=== PATIENT | male | born 1985 | race Caucasian/White ===

== ENCOUNTER 2019-05-31 13:40 | Emergency (ER) | payer BC ==
[2019-05-31] MEDS ORDERED: LEVALBUTEROL 1.25 MG/3 ML NEB ONE (14:25)
[2019-05-31] MEDS ORDERED: IPRATROPIUM BROM 0.5MG/2.5ML ONE (14:25)
[2019-05-31] MEDS ORDERED: NA CHLORIDE 0.9% 1,000 ML ONE ×2 (14:25→16:28)
[2019-05-31 14:40] LABS: Protime INR 1.38
[2019-05-31 14:41] LABS: Absolute Lymphocytes (CBC) 0.6 K/uL (0.7-4.9); Basophils % 0.2 % (0-1.3); Hematocrit 45.6 % (39.6-49.0); Lymphocytes % 3.1 % (15.3-44.8); MPV 9.8 fL (7.6-11.3); RBC Red Blood Cell Count 5.18 M/uL (4.33-5.43)
[2019-05-31 14:55] LABS: BUN Blood Urea Nitrogen 23 mg/dL (7-18); Bicarbonate 23 mmol/L (21-32); Glucose Level 115 mg/dL (74-106); Magnesium 2.7 mg/dL (1.8-2.4); NT PRO-BNP 80 pg/mL (<125); Potassium 3.5 mmol/L (3.5-5.1); Sodium Level 132 mmol/L (136-145); Troponin (Emerg Dept Use Only) < 0.02 ng/mL (0.0-0.045)
[2019-05-31 15:53] LABS: Blood Morphology Comment NOT SEEN (NOT SEEN); Platelet Estimate ADEQ; Urine White Blood Cell Casts OK
[2019-05-31] MEDS ORDERED: CEFTRIAXONE/SWI 1gm 1 GM/10 ML SYR ONE (16:00)
--- NOTE | 2019-05-31 16:03 | RAD REPORT ---
EXAM DESCRIPTION: CT - Chest For Pe Angio - 05/31/2019 3:32 pm CLINICAL HISTORY: Dyspnea;Cough COMPARISON: No comparisons TECHNIQUE: Dynamically enhanced 3 mm thick images of the chest were obtained during administration o f approximately 150mL Isovue 370 IV contrast. Coronal and oblique MIP reconstruction images were gene rated and reviewed. Exam utilizes a protocol to evaluate the pulmonary arterial tree. All CT scans are performed using dose optimization technique as appropriate and may include automated exposure control or mA/KV adjustment according to patient size. FINDINGS: No pulmonary emboli are identified. The aorta as imaged shows no acute or suspicious finding. No pericardial thickening or effusion. Extensive ground-glass airspace opacification is present throughout the left upper lobe and left lowe r lobe. There is extensive similar pattern in the right lower lobe and much of the right upper lobe. No pleural effusion or pleural thickening. No mediastinal or hilar suspicious masses. No chest wall masses or abnormal axillary lymphadenopathy. IMPRESSION: No pulmonary emboli identified. Very extensive ground-glass alveolar opacities throughout most of the bilateral lung mckoy sparing p ortions of each apex and portions of the right lower lobe and right middle lobe. Pattern is nonspecif ic and there is a very long differential diagnosis. This alveolar edema can be from failure or volume overload. Pneumonia, inhalation injury and hypersen sitivity pneumonitis are possible.
--- NOTE | 2019-05-31 16:05 | RAD REPORT ---
EXAM DESCRIPTION: CT - Abdomen Pelvis W Contrast - 05/31/2019 3:33 pm CLINICAL HISTORY: ABD PAIN COMPARISON: None. TECHNIQUE: Biphasic, helical CT imaging of the abdomen and pelvis was performed following 100 ml non -ionic IV contrast. Oral contrast was given. All CT scans are performed using dose optimization technique as appropriate and may include automated exposure control or mA/KV adjustment according to patient size. FINDINGS: Lung findings are detailed in separate report. No pericardial thickening or effusion. The liver, spleen, and pancreas show no suspicious findings. Gallbladder and biliary tree are also wi thout suspicious finding. Symmetric renal function is seen with no hydronephrosis or suspicious renal mass. No pyelonephritis o r acute parenchymal process. No bladder abnormalities. No adrenal abnormalities. No dilated bowel loops or bowel wall thickening. No free air, free fluid or inflammatory stranding. No hernia, mass or bulky lymphadenopathy. No suspicious bony findings. IMPRESSION: Contrast enhanced CT abdomen and pelvis showing no significant or suspicious finding.
--- NOTE | 2019-05-31 16:21 | ER ---
Nurse's Notes [facility] Name: Lavell Hess Age: 33 yrs Sex: Male : 1985 Arrival Date: 05/31/2019 Time: 13:45 Bed 20 Private MD: Diagnosis: Pneumonia, unspecified organism;Hypoxia Presentation: 05/31 14:05 Presenting complaint: Patient states: Sx to L forearm approx 3 weeks ago, N/V that ph began approx 1 week ago, also reports headaches, dizziness, confusion and SOB, Spo2 69% in triage, taken to bed 20 and placed on NRB mask. Transition of care: patient was not received from another setting of care. Onset of symptoms was May 31, 2019. Risk Assessment: Do you want to hurt yourself or someone else? Patient reports no desire to harm self or others. Initial Sepsis Screen: Does the patient meet any 2 criteria? RR > 20 per min. HR > 90 bpm. Does the patient have a suspected source of infection? No. Patient's initial sepsis screen is negative. Care prior to arrival: None. 14:05 Method Of Arrival: Ambulatory ph 14:05 Acuity: BELKYS 1 ph Triage Assessment: 14:07 General: Appears in no apparent distress. comfortable, well groomed, Behavior is calm, ph cooperative. Pain: Denies pain. Neuro: Level of Consciousness is awake, alert, obeys commands, Oriented to person, place, time, situation. Cardiovascular: Capillary refill is > 3 seconds in bilateral fingers. Respiratory: Airway is patent Respiratory effort is even, unlabored, Respiratory pattern is tachypnea. Respiratory: Reports shortness of breath at rest. Derm: Skin is intact, Skin is pale. Historical: - Allergies: 14:07 No Known Allergies; ph - PSHx: 14:07 arm sx; ph Screenin:25 Abuse screen: Denies threats or abuse. Nutritional screening: No deficits noted. em Tuberculosis screening: No symptoms or risk factors identified. Fall Risk None identified. Assessment: 14:25 General: Appears in no apparent distress. uncomfortable, Behavior is calm, cooperative, em Reports fever for > 3 days. Pain: Denies pain. Neuro: Level of Consciousness is awake, alert, obeys commands, Oriented to person, place, time, situation. Cardiovascular: Capillary refill < 3 seconds Rhythm is sinus tachycardia Chest pain is denied. Respiratory: Reports shortness of breath on exertion cough that is hacking, Airway is patent Respiratory effort is even, Respiratory pattern is tachypnea Breath sounds are diminished bilaterally. the patient has severe shortness of breath. GI: Abdomen is flat, Reports nausea, vomiting. Derm: Skin is intact, is healthy with good turgor, Skin is pale. Musculoskeletal: Capillary refill is > 3 seconds, is sluggish, in bilateral fingers. toes. 14:30 General: The previous assessment is accurate, family member remains at bedside. Call ss light within reach. . 15:13 Reassessment: reports feeling better after the breathing treatment, placed on 4 LPM via em NC, SPO2 90%, wheeled to CT via wheelchair. 15:55 Reassessment: Patient appears in no apparent distress at this time. Patient and/or em family updated on plan of care and expected duration. Pain level reassessed. placed on Venti mask at 50% O2. 16:30 Reassessment: SPO2% 85-91% on venti mask, provider notified, reports O2 is helping. em 17:00 Reassessment: Patient appears in no apparent distress at this time. Patient and/or em family updated on plan of care and expected duration. Pain level reassessed. pt reports mask is helping, SPO2 90% on venti mask. 18:00 Reassessment: Patient appears in no apparent distress at this time. report given to kathie Carlos RN at [facility]. 18:20 Reassessment: Patient appears in no apparent distress at this time. report given to [facility]. Vital Signs: 13:52 BP 136 / 70; Pulse 135; Resp 32; Temp 98.2; Pulse Ox 69% on R/A; ph 15:10 BP 134 / 76; Pulse 125; Resp 22; Pulse Ox 90% on 4 lpm NC; em 16:10 BP 132 / 76; Pulse 121; Resp 24; Pulse Ox 100% on 50% Venturi mask; Weight 83.46 kg (R);em 17:17 BP 145 / 80; Pulse 114; Resp 30; Temp 99.2(O); Pulse Ox 90% on 50% Venturi mask; em 18:00 BP 140 / 82; Pulse 117; Resp 30; Temp 100.7(O); Pulse Ox 88% on 50% Venturi mask; Pain em 0/10; ED Course: 13:45 Patient arrived in ED. mr 14:04 TimiMirta, [facility]. kb 14:04 Eliseo Aldridge MD is Attending Physician. kb 14:06 Triage completed. ph 14:07 Arm band placed on Patient placed in an exam room, on a stretcher, on oxygen, on pulse ph oximetry. 14:17 Initial lab(s) drawn, by me, sent to lab. First set of blood cultures drawn by me, EKG ms done, by ED staff, reviewed by Eliseo Aldridge MD. 14:20 Radiology exam delayed due to lab results not completed at this time. (BUN/Creatinine). kw1 14:22 Ken Gil LVN is Primary Nurse. em 14:25 Patient has correct armband on for positive identification. Placed in gown. Bed in low em position. Call light in reach. Side rails up X2. Adult w/ patient. youth nutritional monitor on. Pulse ox on. NIBP on. 14:32 Inserted saline lock: 18 gauge in right forearm, using aseptic technique. Blood ms collected. 15:[address] via stretcher. eh 15:33 CT Chest For PE Angio In Process Unspecified. EDMS 15:33 CT Abd/Pelvis - IV Contrast Only In Process Unspecified. EDMS 16:20 Arianna Pathak MD is Hospitalizing Provider. kb 16:34 Inserted saline lock: 20 gauge in left antecubital area, using aseptic technique. em 18:31 No provider procedures requiring assistance completed. Patient transferred, IV remains em in place. Administered Medications: 14:29 Drug: Xopenex (3) 1.25 mg Route: Inhalation; em 15:10 Follow up: Response: No adverse reaction; Marked relief of symptoms em 14:29 Drug: AtroVENT Aerosol 0.5 mg Route: Inhalation; em 15:10 Follow up: Response: No adverse reaction; Marked relief of symptoms em 14:29 Drug: NS 0.9% 1000 ml Route: IV; Rate: 1000 ml; Site: right forearm; em 15:10 Follow up: IV Status: Completed infusion; IV Intake: 1000ml em 16:05 Drug: Rocephin 1 grams Route: IV; Rate: calculated rate; Site: right forearm; ss 17:49 Follow up: Response: No adverse reaction; IV Status: Completed infusion; IV Intake: 10mlem 16:07 Not Given (Other Intervention Used): Zithromax 500 mg IVPB once over 1 hrs; mix in 250 kb mL NS 16:07 Not Given (Other Intervention Used): Rocephin 1 grams IV at calculated rate once; Given kb slow IV push per pharmacy instructions 16:33 Drug: NS 0.9% (30 ml/kg) 30 ml/kg Route: IV; Rate: bolus; Site: right forearm; em 17:49 Follow up: IV Status: Completed infusion; IV Intake: 1500ml em 16:34 Drug: SOLU-Medrol 125 mg Route: IVP; Site: right forearm; ss 17:50 Follow up: Response: No adverse reaction em 16:37 Drug: LevaQUIN 750 mg Volume: 150 ml; Route: IVPB; Infused Over: 90 mins; Site: right em forearm; 18:10 Follow up: Response: No adverse reaction; IV Status: Completed infusion; IV Intake: em 150ml 16:42 Drug: vancoMYCIN 1 grams Route: IVPB; Infused Over: 2 hrs; Site: left antecubital; em 18:34 Follow up: Response: No adverse reaction; IV Status: Infusion continued upon transfer; em IV Intake: 125ml 18:11 Drug: Ibuprofen 600 mg Route: PO; ss 18:34 Follow up: Response: No adverse reaction em Intake: 15:10 IV: 1000ml; Total: 1000ml. em 17:49 IV: 1500ml; Total: 2500ml. em 17:49 IV: 10ml; Total: 2510ml. em 18:10 IV: 150ml; Total: 2660ml. em 18:34 IV: 125ml; Total: 2785ml. em Outcome: 16:20 Decision to Hospitalize by Provider. kb 17:25 ER care complete, transfer ordered by MD. kb 18:34 Transferred by ground EMS to [facility], Transfer form completed. em X-rays sent w/ patient. 18:34 Condition: stable 18:34 Instructed on the need for transfer, Demonstrated understanding of instructions. 18:35 Patient left the ED. em Signatures: Dispatcher [employer] EDMS Mirta Capellan, SARAH COPY MESSENGER-Norma Centeno RatnaAlex Edgar, ADMITTING COUNSELOR ADMITTING COUNSELOR em Teri Phillips ms Maddison Ramos, RENE RN ss Eve Mosher RN RN Liliam Flynn [facility] Corrections: (The following items were deleted from the chart) 17:18 15:55 Reassessment: Patient appears in no apparent distress at this time. Patient em and/or family updated on plan of care and expected duration. Pain level reassessed. Patient is alert, oriented x 3, equal unlabored respirations, skin warm/dry/pink. placed on Venti mask at 50% O2 em 17:19 17:18 Reassessment: Patient appears in no apparent distress at this time. Patient em and/or family updated on plan of care and expected duration. Pain level reassessed. Patient is alert, oriented x 3, equal unlabored respirations, skin warm/dry/pink. em
--- NOTE | 2019-05-31 16:22 | EDPHYS ---
Physician Documentation [facility] Name: Lavell Hess Age: 33 yrs Sex: Male : 1985 Arrival Date: 05/31/2019 Time: 13:45 Bed 20 Private MD: ED Physician Eliseo Aldridge HPI: 05/31 15:28 This 33 yrs old Male presents to ER via Ambulatory with complaints of Low O2, kb Fever, Vomiting. 15:28 The patient has shortness of breath at rest. Onset: The symptoms/episode began/occurred kb 7 day(s) ago. Duration: The symptoms are continuous. The patient's shortness of breath is aggravated by nothing, is alleviated by nothing. Associated signs and symptoms: Pertinent positives: non-productive cough, fever, nausea, vomiting. Severity of symptoms: At their worst the symptoms were moderate severe in the emergency department the symptoms are unchanged. The patient has not experienced similar symptoms in the past. The patient has not recently seen a physician. Pt reports he had a cough and shortness of breath for a week. States the cough would cause vomiting. Also reports abd pain, nausea and vomiting after eating. Has had fevers of 102 at home. Mother bought a pulse ox at the store and checked him saying that he was staying at 73% at rest and would drop as low as 67% when he got up to the bathroom and moving around. That is what made them come in. Pt does not appear to be in distress. Pt is 95-100% on NRB at 15L. Had bicep repair on 04/21/19, was immobilized afterwards, then started physical therapy .. Historical: - Allergies: 14:07 No Known Allergies; ph - PSHx: 14:07 arm sx; ph ROS: 15:26 ENT: Negative for injury, pain, and discharge, Neck: Negative for injury, pain, and kb swelling, Cardiovascular: Negative for chest pain, palpitations, and edema, Back: Negative for injury and pain, : Negative for injury, bleeding, discharge, and swelling, MS/Extremity: Negative for injury and deformity, Skin: Negative for injury, rash, and discoloration. 15:26 Constitutional: Positive for chills, fatigue, fever, malaise, poor PO intake, Negative for body aches, weight loss. 15:26 Respiratory: Positive for cough, dyspnea on exertion, shortness of breath, Negative for hemoptysis, orthopnea, pleurisy, wheezing. 15:26 Abdomen/GI: Positive for abdominal pain, nausea and vomiting. Exam: 15:27 Constitutional: This is a well developed, well nourished patient who is awake, alert, kb and in no acute distress. Head/Face: Normocephalic, atraumatic. ENT: Nares patent. No nasal discharge, no septal abnormalities noted. Tympanic membranes are normal and external auditory canals are clear. Oropharynx with no redness, swelling, or masses, exudates, or evidence of obstruction, uvula midline. Mucous membranes moist. Neck: Trachea midline, no thyromegaly or masses palpated, and no cervical lymphadenopathy. Supple, full range of motion without nuchal rigidity, or vertebral point tenderness. No Meningismus. Chest/axilla: Normal chest wall appearance and motion. Nontender with no deformity. No lesions are appreciated. Cardiovascular: Regular rate and rhythm with a normal S1 and S2. No gallops, murmurs, or rubs. Normal PMI, no JVD. No pulse deficits. Abdomen/GI: Soft, non-tender, with normal bowel sounds. No distension or tympany. No guarding or rebound. No evidence of tenderness throughout. Back: No spinal tenderness. No costovertebral tenderness. Full range of motion. Skin: Warm, dry with normal turgor. Normal color with no rashes, no lesions, and no evidence of cellulitis. MS/ Extremity: Pulses equal, no cyanosis. Neurovascular intact. Full, normal range of motion. Neuro: Awake and alert, GCS 15, oriented to person, place, time, and situation. Cranial nerves II-XII grossly intact. Motor strength 5/5 in all extremities. Sensory grossly intact. Cerebellar exam normal. Normal gait. 15:27 Respiratory: the patient does not display signs of respiratory distress, Respirations: normal, Breath sounds: decreased breath sounds, that are mild, are located in both bases. Vital Signs: 13:52 BP 136 / 70; Pulse 135; Resp 32; Temp 98.2; Pulse Ox 69% on R/A; ph 15:10 BP 134 / 76; Pulse 125; Resp 22; Pulse Ox 90% on 4 lpm NC; em 16:10 BP 132 / 76; Pulse 121; Resp 24; Pulse Ox 100% on 50% Venturi mask; Weight 83.46 kg (R);em 17:17 BP 145 / 80; Pulse 114; Resp 30; Temp 99.2(O); Pulse Ox 90% on 50% Venturi mask; em 18:00 BP 140 / 82; Pulse 117; Resp 30; Temp 100.7(O); Pulse Ox 88% on 50% Venturi mask; Pain em 0/10; MDM: 14:04 Patient medically screened. kb 15:26 Data reviewed: vital signs, nurses notes. Data interpreted: Pulse oximetry: on room air kb is 69 %. Interpretation: hypoxia. 15:32 ED course: After neb treatment, pt is 90% on 4L via NC. kb 16:18 Counseling: I had a detailed discussion with the patient and/or guardian regarding: the kb historical points, exam findings, and any diagnostic results supporting the discharge/admit diagnosis, lab results, radiology results, the need for further work-up and treatment in the hospital. Physician consultation: rAianna Pathak MD was contacted at 16:19, regarding admission, to the ICU, patient's condition, and will see patient in ED, shortly. 16:49 Counseling: I had a detailed discussion with the patient and/or guardian regarding: the kb need to transfer to another facility, for higher level of care, [facility] does not immediately have the required specialist. Physician consultation: Arianna Pathak MD after a discussion of the case, a recommendation for transfer for higher level of care is made. ED course: Per Dr Pathak, Dr Loving is unavailable until tomorrow. Dr Pathak requests transfer due to lack of pulmonology backup.. 17:24 ED course: Dr Sabillon accepts pt for transfer to [facility] ICU. kb 05/31 14:05 Order name: Basic Metabolic Panel; Complete Time: 14:59 kb 05/31 14:05 Order name: CBC with Diff; Complete Time: 15:54 kb 05/31 14:05 Order name: Magnesium; Complete Time: 14:59 kb 05/31 14:05 Order name: NT PRO-BNP; Complete Time: 14:59 kb 05/31 14:05 Order name: PT-INR; Complete Time: 14:54 kb 05/31 14:05 Order name: Troponin (emerg Dept Use Only); Complete Time: 14:59 kb 05/31 14:15 Order name: CT Chest For PE Angio; Complete Time: 16:11 kb 05/31 14:17 Order name: Blood Culture Adult (2) kb 05/31 14:17 Order name: Lactate; Complete Time: 14:59 kb 05/31 14:17 Order name: Procalcitonin; Complete Time: 15:23 kb 05/31 14:47 Order name: CT Abd/Pelvis - IV Contrast Only; Complete Time: 16:11 kb 05/31 14:52 Order name: CBC Smear Scan; Complete Time: 15:54 EDMS 05/31 16:43 Order name: ABG; Complete Time: 17:14 kb 05/31 14:05 Order name: EKG; Complete Time: 14:08 kb 05/31 14:05 Order name: Cardiac monitoring; Complete Time: 14:21 kb 05/31 14:05 Order name: EKG - Nurse/Tech; Complete Time: 14:32 kb 05/31 14:05 Order name: IV Saline Lock; Complete Time: 14:21 kb 05/31 14:05 Order name: Labs collected and sent; Complete Time: 14:21 kb 05/31 14:05 Order name: O2 Per Protocol; Complete Time: 14:21 kb 05/31 14:05 Order name: O2 Sat Monitoring; Complete Time: 14:21 kb Administered Medications: 14:29 Drug: Xopenex (3) 1.25 mg Route: Inhalation; em 15:10 Follow up: Response: No adverse reaction; Marked relief of symptoms em 14:29 Drug: AtroVENT Aerosol 0.5 mg Route: Inhalation; em 15:10 Follow up: Response: No adverse reaction; Marked relief of symptoms em 14:29 Drug: NS 0.9% 1000 ml Route: IV; Rate: 1000 ml; Site: right forearm; em 15:10 Follow up: IV Status: Completed infusion; IV Intake: 1000ml em 16:05 Drug: Rocephin 1 grams Route: IV; Rate: calculated rate; Site: right forearm; ss 17:49 Follow up: Response: No adverse reaction; IV Status: Completed infusion; IV Intake: 10mlem 16:07 Not Given (Other Intervention Used): Zithromax 500 mg IVPB once over 1 hrs; mix in 250 kb mL NS 16:07 Not Given (Other Intervention Used): Rocephin 1 grams IV at calculated rate once; Given kb slow IV push per pharmacy instructions 16:33 Drug: NS 0.9% (30 ml/kg) 30 ml/kg Route: IV; Rate: bolus; Site: right forearm; em 17:49 Follow up: IV Status: Completed infusion; IV Intake: 1500ml em 16:34 Drug: SOLU-Medrol 125 mg Route: IVP; Site: right forearm; ss 17:50 Follow up: Response: No adverse reaction em 16:37 Drug: LevaQUIN 750 mg Volume: 150 ml; Route: IVPB; Infused Over: 90 mins; Site: right em forearm; 18:10 Follow up: Response: No adverse reaction; IV Status: Completed infusion; IV Intake: em 150ml 16:42 Drug: vancoMYCIN 1 grams Route: IVPB; Infused Over: 2 hrs; Site: left antecubital; em 18:34 Follow up: Response: No adverse reaction; IV Status: Infusion continued upon transfer; em IV Intake: 125ml 18:11 Drug: Ibuprofen 600 mg Route: PO; ss 18:34 Follow up: Response: No adverse reaction em Disposition: 05/31/19 17:25 Transfer ordered to [facility]. Diagnosis are Pneumonia, unspecified organism, Hypoxia. - Reason for transfer: Higher level of care. - Accepting physician is Dr Sabillon. - Condition is Serious. - Problem is new. - Symptoms are unchanged. Signatures: Dispatcher [employer] Mirta Garcia, DENTAL LAB TECHNICIAN-C DENTAL LAB TECHNICIAN-Ckb Eliseo Aldridge MD MD cha Munoz, Edgar, CLIENT CONSULTANT CLIENT CONSULTANT Maddison Ramos, RENE RN Eve Mosher RN RN ph Corrections: (The following items were deleted from the chart) 15:37 15:28 Pt reports he had a cough and shortness of breath for a week. States the cough kb would cause vomiting. Also reports abd pain, nausea and vomiting after eating. Has had fevers of 102 at home. Mother bought a pulse ox at the store and checked him saying that he was staying at 73% at rest and would drop as low as 67% when he got up to the bathroom and moving around. That is what made them come in. Pt does not appear to be in distress. Pt is 95-100% on NRB at 15L. . kb 16:50 16:20 Hospitalization Ordered by Arianna Pathak MD for Inpatient Admission. Preliminary kb diagnosis is Pneumonia, unspecified organism - bilateral; Hypoxia. Bed requested for Intensive Care Unit. Status is Inpatient Admission. Condition is Stable. Problem is new. Symptoms are unchanged. UTI on Admission? No. kb 17:25 17:25 05/31/2019 17:25 Transfer ordered to [facility]. Diagnosis is kb Pneumonia, unspecified organism; Hypoxia. Reason for transfer: Higher level of care. Accepting physician is Dr Sabillon. Condition is Fair. Problem is new. Symptoms are unchanged. kb 18:35 17:25 05/31/2019 17:25 Transfer ordered to [facility]. Diagnosis is em Pneumonia, unspecified organism; Hypoxia. Reason for transfer: Higher level of care. Accepting physician is Dr Sabillon. Condition is Serious. Problem is new. Symptoms are unchanged. kb
[2019-05-31] MEDS ORDERED: METHYLPREDNISOLONE 125 MG INJ ONE (16:27)
[2019-05-31] MEDS ORDERED: Levofloxacin 750mg IV 750 MG/150 ML BAG IV ONE (16:28)
[2019-05-31] MEDS ORDERED: NA CHLORIDE 0.9% 500 ML ONE (16:44)
[2019-05-31 16:58] LABS: Arterial Blood Carboxyhemoglob 0.8 % (0-1.5); Blood O2 Saturation 88.3 % (92-98.5)
[2019-05-31] MEDS ORDERED: AZITHROMYCIN IV 500 MG in NA CHLORIDE 0.9% 250 ML IVPB ONE (17:00)
[2019-05-31] MEDS ORDERED: VANCOMYCIN 2 GM in NA CHLORIDE 0.9% 500 ML IVPB ONE (17:00)
[2019-05-31] MEDS ORDERED: IBUPROFEN 400 MG TAB ONE (18:06)
[2019-05-31] MEDS ORDERED: IBUPROFEN 200 MG TAB PO ONE (18:07)
--- NOTE | 2019-06-01 10:44 | EKG ---
Test Date: 2019-05-31 Test Time: 14:30:50 Safety Equipment Testing Specialist: MEASUREMENT RESULTS: Intervals: Rate: 119 MT: 130 QRSD: 80 QT: 318 QTc: 447 [place]: P: 67 MT: 130 QRS: 68 T: 19 INTERPRETIVE STATEMENTS: Sinus tachycardia Otherwise normal ECG No previous ECG available for comparison Electronically Signed On 06-01-19 10:43:14 CDT by Tyson Jules
== END 2019-05-31 18:35 | disposition short-term general hospital (02) ==
LOC: ER 13:40
DX: J18.9 Pneumonia, unspecified organism (principal); R09.02 Hypoxemia
CPT/HCPCS: 93005; 87040 ×2; 85025; 80048; 36415; 83735; 85610; 83605; 84484; 84145; 83880; 71275; 74177; 82805; 99291; 99292; Q9967; J0696; J7030 ×2; J2930; J0456

== ENCOUNTER 2021-03-19 09:03 | Emergency (ER) | payer BC ==
--- NOTE | 2021-03-19 10:21 | RAD REPORT ---
EXAM DESCRIPTION: US - Abdomen Exam Limited - 03/19/2021 10:10 am CLINICAL HISTORY: ABD PAIN COMPARISON: Abdomen Pelvis W Contrast dated 05/31/2019 FINDINGS: Gallbladder is tightly contracted which accentuates wall thickness. No large stones are pr esent. Small sandlike stones could potentially be obscured. No pericholecystic fluid. No common duct stone or biliary tree dilatation identified. IMPRESSION: Tightly contracted gallbladder showing no stones sludge. Contracted gallbladder may be d ue to nonfasting state. No biliary tree abnormality.
[2021-03-19] MEDS ORDERED: ONDANSETRON 4 MG/2 ML VIAL ONE (11:02)
[2021-03-19] MEDS ORDERED: KETOROLAC 30 MG/ML INJ ONE (11:02)
[2021-03-19 11:24] LABS: Basophils % 1.1 % (0-1.3); Lymphocytes % 26.4 % (15.3-44.8); MPV 8.8 fL (7.6-11.3); RBC Red Blood Cell Count 5.78 M/uL (4.33-5.43)
[2021-03-19 11:48] LABS: Albumin 3.3 g/dL (3.4-5.0); Bilirubin Direct 0.1 mg/dL (0-0.2); Bilirubin Total 0.6 mg/dL (0.2-1.0); Potassium 4.4 mmol/L (3.5-5.1); Protein, Total 6.8 g/dL (6.4-8.2)
--- NOTE | 2021-03-19 11:57 | ER ---
Nurse's Notes [facility] Name: Lavell Hess Age: 35 yrs Sex: Male : 1985 Arrival Date: 03/19/2021 Time: 09:05 Bed 2 Private MD: Diagnosis: Upper abdominal pain, unspecified Presentation: 03/19 09:14 Chief complaint: Patient states: RUQ abd pain that radiates through to back for 3 days. ll1 + nausea and diarrhea. No fever. Pain increases after eating. Coronavirus screen: Client denies travel out of the [place] in the last 14 days. At this time, the client does not indicate any symptoms associated with coronavirus-19. Ebola Screen: Patient denies travel to an Ebola-affected area in the 21 days before illness onset. Initial Sepsis Screen: Does the patient meet any 2 criteria? No. Patient's initial sepsis screen is negative. Does the patient have a suspected source of infection? Yes: Acute abdominal pain. Risk Assessment: Do you want to hurt yourself or someone else? Patient reports no desire to harm self or others. Onset of symptoms was March 17, 2021. 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 - Social history:: Smoking status: Patient denies any tobacco usage or history of. Screenin:02 Abuse screen: Denies threats or abuse. Denies injuries from another. Nutritional ph screening: No deficits noted. Tuberculosis screening: No symptoms or risk factors identified. Fall Risk None identified. Assessment: 11:02 General: Appears in no apparent distress. comfortable, well groomed, Behavior is calm, ph cooperative, appropriate for age, Denies fever. Pain: Complains of pain in right upper quadrant Pain radiates to back Quality of pain is described as sharp, Aggravated by eating. Neuro: Level of Consciousness is awake, alert, obeys commands, Oriented to person, place, time, situation. Cardiovascular: Capillary refill < 3 seconds in bilateral fingers Patient's skin is warm and dry. Respiratory: Airway is patent Respiratory effort is even, unlabored, Respiratory pattern is regular, symmetrical. GI: Abdomen is non-distended, Bowel sounds present X 4 quads. Abd is soft X 4 quads Reports upper abdominal pain, nausea, vomiting. Derm: Skin is intact, is healthy with good turgor, Skin is pink, warm \T\ dry. Musculoskeletal: Circulation, motion, and sensation intact. Range of motion: intact in all extremities. 12:08 Reassessment: Patient is alert, oriented x 3, equal unlabored respirations, skin aa5 warm/dry/pink. Vital Signs: 09:14 BP 162 / 81; Pulse 79; Resp 17; Weight 96.16 kg; Height 5 ft. 9 in. (175.26 cm); Pain ll1 10; 09:14 Temp 98.4; Pulse Ox 100% ; ll1 09:14 Body Mass Index 31.31 (96.16 kg, 175.26 cm) ll1 ED Course: 09:05 Patient arrived in ED. am2 09:13 Arm band placed on. ll1 09:15 Triage completed. ll1 10:10 US Abdomen Limited In Process Unspecified. EDMS 10:31 Mirta Capellan FNP-C [facility]. kb 10:31 Alvin Barrett MD is Attending Physician. kb 10:31 Patient placed in an exam room, on a stretcher. ll1 10:34 Eve Mosher, RN is Primary Nurse. ph 10:50 Initial lab(s) drawn, by ri, sent to lab. Inserted saline lock: 20 gauge in left ph antecubital area, using aseptic technique. Blood collected. 11:02 Patient has correct armband on for positive identification. Bed in low position. Call ph light in reach. Side rails up X 1. Pulse ox on. NIBP on. Door closed. Noise minimized. Warm blanket given. 12:08 No provider procedures requiring assistance completed. IV discontinued, intact, aa5 bleeding controlled, No redness/swelling at site. Pressure dressing applied. Administered Medications: 10:53 Drug: TORadol - (ketorolac) 15 mg Route: IVP; Site: left antecubital; ph 11:10 Follow up: Response: No adverse reaction ph 10:54 Drug: Zofran (Ondansetron) 4 mg Route: IVP; Site: left antecubital; ph 11:10 Follow up: Response: No adverse reaction ph Outcome: 11:56 Discharge ordered by MD. andino 12:08 Discharged to home ambulatory. aa5 12:08 Condition: stable 12:08 Discharge instructions given to patient, Instructed on discharge instructions, follow up and referral plans. medication usage, Demonstrated understanding of instructions, follow-up care, medications, Prescriptions given X 2. 12:10 Patient left the ED. aa5 Signatures: Dispatcher [employer] EDMS Mirta Capellan, CONTRACT ADMINISTRATION MANAGER-C CONTRACT ADMINISTRATION MANAGER-Sarah Christian, RN RN aa5 Eve Mosher RN RN Shannon Butler am2 Clarita Aceves RN RN ll1 Corrections: (The following items were deleted from the chart) 10:54 10:53 TORadol - (ketorolac) 15 mg IVP in right antecubital ph ph
--- NOTE | 2021-03-19 11:57 | EDPHYS ---
Physician Documentation [facility] Name: Lavell Hess Age: 35 yrs Sex: Male : 1985 Arrival Date: 03/19/2021 Time: 09:05 Bed 2 Private MD: ED Physician Alvin Barrett HPI: 03/19 12:22 This 35 yrs old Male presents to ER via Ambulatory with complaints of kb Abdominal Pain - ruq. 12:22 The patient presents with abdominal pain in the right upper quadrant. Onset: The kb symptoms/episode began/occurred 3 day(s) ago. The symptoms radiate to right back. Associated signs and symptoms: Pertinent positives: nausea and vomiting. The symptoms are described as constant. Modifying factors: The symptoms are alleviated by nothing, the symptoms are aggravated by food. Severity of pain: At its worst the pain was moderate in the emergency department the pain is unchanged. The patient has not experienced similar symptoms in the past. The patient has not recently seen a physician. 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 - Social history:: Smoking status: Patient denies any tobacco usage or history of. ROS: 12:21 Constitutional: Negative for fever, chills, and weight loss. kb 12:21 Abdomen/GI: Positive for abdominal pain, nausea and vomiting, Negative for diarrhea, constipation. 12:21 All other systems are negative. Exam: 12:21 Constitutional: This is a well developed, well nourished patient who is awake, alert, kb and in no acute distress. Head/Face: Normocephalic, atraumatic. ENT: Moist Mucous membranes Respiratory: Respirations even and unlabored. No increased work of breathing, no retractions or nasal flaring. Skin: Warm, dry with normal turgor. Normal color. MS/ Extremity: Pulses equal, no cyanosis. Neurovascular intact. Full, normal range of motion. Neuro: Awake and alert, GCS 15, oriented to person, place, time, and situation. Moves all extremities. Normal gait. Psych: Awake, alert, with orientation to person, place and time. Behavior, mood, and affect are within normal limits. 12:21 Abdomen/GI: Inspection: abdomen appears normal, Bowel sounds: normal, in all quadrants, Palpation: soft, in all quadrants, mild abdominal tenderness, in the right lower quadrant, moderate abdominal tenderness, in the right upper quadrant. Vital Signs: 09:14 BP 162 / 81; Pulse 79; Resp 17; Weight 96.16 kg; Height 5 ft. 9 in. (175.26 cm); Pain ll1 10/10; 09:14 Temp 98.4; Pulse Ox 100% ; ll1 09:14 Body Mass Index 31.31 (96.16 kg, 175.26 cm) ll1 MDM: 10:34 Patient medically screened. kb 12:21 Data reviewed: vital signs, nurses notes. Data interpreted: Pulse oximetry: on room air kb is 100 %. Interpretation: normal. Counseling: I had a detailed discussion with the patient and/or guardian regarding: the historical points, exam findings, and any diagnostic results supporting the discharge/admit diagnosis, lab results, radiology results, the need for outpatient follow up, a production inspector, to return to the emergency department if symptoms worsen or persist or if there are any questions or concerns that arise at home. 03/19 10:34 Order name: Basic Metabolic Panel; Complete Time: 11:50 kb 03/19 10:34 Order name: CBC with Diff; Complete Time: 11:28 kb 03/19 09:16 Order name: US Abdomen Limited; Complete Time: 10:29 kb 03/19 10:34 Order name: Hepatic Function; Complete Time: 11:50 kb 03/19 10:34 Order name: Lipase; Complete Time: 11:50 kb 03/19 10:34 Order name: IV Saline Lock; Complete Time: 10:53 kb 03/19 10:34 Order name: Labs collected and sent; Complete Time: 10:53 kb 03/19 11:07 Order name: Labs - recollect needed: recollect green top; Complete Time: 11:16 eb Administered Medications: 10:53 Drug: TORadol - (ketorolac) 15 mg Route: IVP; Site: left antecubital; ph 11:10 Follow up: Response: No adverse reaction ph 10:54 Drug: Zofran (Ondansetron) 4 mg Route: IVP; Site: left antecubital; ph 11:10 Follow up: Response: No adverse reaction ph Disposition: 17:31 Co-signature as Attending Physician, Alvin Barrett MD. rn Disposition: 03/19/21 11:56 Discharged to Home. Impression: Upper abdominal pain, unspecified. - Condition is Stable. - Discharge Instructions: Abdominal Pain, Adult, [id number]. - Prescriptions for Bentyl 20 mg Oral Tablet - take 1 tablet by ORAL route every 6 hours As needed; 20 tablet. Zofran 4 mg Oral Tablet - take 1 tablet by ORAL route every 6 hours As needed; 20 tablet. - Medication Reconciliation Form, Thank You Letter, Antibiotic Education, Prescription Opioid Use, Work release form form. - Follow up: Emergency Department; When: As needed; Reason: Worsening of condition. Follow up: Private Physician; When: 2 - 3 days; Reason: Recheck today's complaints, Continuance of care, Re-evaluation by your physician. Signatures: Dispatcher [employer] EDMS Mirta Capellan, BILINGUAL RESEARCH INTERVIEWER-C BILINGUAL RESEARCH INTERVIEWER-Ckb Alvin Barrett MD MD rn Calderon, Audri RN RN aa5 Eve Mosher RN RN Renata Pagan Lynsay RN RN ll1 Corrections: (The following items were deleted from the chart) 12:10 11:56 03/19/2021 11:56 Discharged to Home. Impression: Upper abdominal pain, aa5 unspecified. Condition is Stable. Forms are Medication Reconciliation Form, Thank You Letter, Antibiotic Education, Prescription Opioid Use. Follow up: Emergency Department; When: As needed; Reason: Worsening of condition. Follow up: Private Physician; When: 2 - 3 days; Reason: Recheck today's complaints, Continuance of care, Re-evaluation by your physician. kb
[2021-03-19 12:17] VITALS: BP 162/81; TEMP 98.4; O2SAT 100
== END 2021-03-19 12:10 | disposition home or self-care (01) ==
LOC: ER 09:03
DX: R10.11 Right upper quadrant pain (principal)
CPT/HCPCS: 85025; 80048; 36415; 80076; 83690; 76705; J2405; 96374; 96375; 99284